=== PATIENT | female | born 1960 | race Caucasian/White ===

== ENCOUNTER 2019-06-07 11:05 | Inpatient (IN) ==
[2019-06-07 11:16] LABS: BE -2.1 mmoll (-3.0-3.0); BLOOD TYPE ARTERIAL; METHB 1.4 % (0.0-1.5); O2(CT) 19.7 mL/dL (15.0-23.0); PO2(98.6) 69 mmHg (60-100); SAMPLE BLOOD; SAO2 95.5 % (95.0-100.0); THB 15.8 g/dL (11.5-17.4); pH(98.6) 7.24 (7.35-7.45)
[2019-06-07] MEDS ORDERED: NS 1,000 ML IV ONE ×2 (11:24→11:56)
[2019-06-07 11:37] LABS: BASO# 0.02 X1000 (0.0-0.2); BASO% 0.2 % (0.0-0.8); EOS# 0.01 X1000 (0.0-0.7); EOS% 0.1 % (0.0-10.0); HEMATOCRIT 46.6 % (37.0-47.0); HEMOGLOBIN 14.9 g/dL (12.0-16.0); IMM GRAN# 0.03 X1000 (0.0-0.04); IMM GRAN% 0.3 % (0.0-0.5); LYMPH# 0.76 X1000 (1.2-3.4); LYMPH% 7.1 % (20.5-51.1); MCH 31.6 PG (27-31); MCV 98.7 FL (81-99); MONO# 1.31 X1000 (0.11-0.59); MONO% 12.2 % (1.7-9.3); MPV 9.8 FL (7.4-10.4); NEUT# 8.61 X1000 (1.4-6.5); NEUT% 80.1 % (42.2-75.2); PLT 286 X1000 (130-400); RBC 4.72 XMIL (4.2-5.4); WBC 10.74 X1000 (4.8-10.8)
[2019-06-07 11:40] LABS: PCO2(98.6) 63 mmHg (35-45)
[2019-06-07 11:41] LABS: ALLEN TEST YES; MODALITY NRB; O2HB 88.5 % (95.0-99.0)
--- NOTE | 2019-06-07 11:44 | Diag Imaging Result Doc PS360 ---
EXAM: CHEST-PORTABLE HISTORY: SOB TECHNIQUE: Single view COMPARISON: 10/27/2018 FINDINGS: The lungs are well expanded. The heart is not enlarged. The vessels are not distended. There are bilateral infiltrates, right greater than left. No effusion identified. IMPRESSION: Bilateral pneumonia Electronically signed by Lemuel Ibarra 06/07/2019 11:41 AM
[2019-06-07 11:54] LABS: INR 1.06; PROTIME 14.4 Seconds (11.0-16.0)
[2019-06-07 11:55] LABS: PTT 30.9 Seconds (22.3-41.8)
[2019-06-07 11:58] LABS: AGAP 17; ALBUMIN 4.1 g/dL (3.5-5.0); ALKALINE PHOSPHATASE 81 U/L (32-104); BUN 12 mg/dL (8-22); CALCIUM 9.4 mg/dL (8.8-10.2); CHLORIDE 96 mmol/L (98-107); COSMO 283; CREATININE 0.8 mg/dL (0.5-0.9); ESTIMATED GFR > 60; GLUCOSE 159 mg/dL (70-104); GOT 23 U/L (10-30); GPT 13 U/L (10-36); SODIUM 140 mmol/L (136-145); TCO2 27 mmol/L (25-35); TOTAL PROTEIN 7.6 g/dL (6.3-8.3)
[2019-06-07 12:15] LABS: CK PROFILE 748 U/L (24-173)
[2019-06-07] MEDS ORDERED: ZOSYN 3.375 GM in NS 50 ML IV ONE (12:19)
--- NOTE | 2019-06-07 12:27 | Diag Imaging Result Doc PS360 ---
EXAM: CT HEAD W/O CONTRAST HISTORY: altered mental tatus TECHNIQUE: CT head without contrast COMPARISON: 10/27/2018 FINDINGS: No parenchymal hemorrhage. No epidural or subdural hematoma. No subarachnoid hemorrhage. No mass identified on this noncontrasted exam. No hydrocephalus. No sinus opacification. IMPRESSION: No hemorrhage. Negative brain CT without contrast. This exam was performed using automated exposure control, adjustment of mA or kV according to patient size, and/or use of iterative reconstruction technique. Electronically signed by Lemuel Ibarra 06/07/2019 12:25 PM
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
[2019-06-07 12:38] LABS: CK INDEX 1.3 (0.0-2.5); CK-MB 9.47 ng/mL (0.0-5.0)
[2019-06-07] MEDS ORDERED: LEVOPHED 8 MG in D5 1/2 NS 250 ML IV SCH (13:15)
[2019-06-07] MEDS ORDERED: ZOFRAN IV PRN (13:24)
[2019-06-07] MEDS ORDERED: DUONEB (A & A) INH PRN (13:24)
[2019-06-07] MEDS ORDERED: DOXYCYCLINE 100 MG in NS 250 ML IV SCH (13:30)
[2019-06-07] MEDS: NS 1,000 ML IV SCH ×2 (13:30→20:38)
[2019-06-07] MEDS: ROCEPHIN 1 GM in NS 50 ML IV SCH ×2 (13:50→15:32)
[2019-06-07] MEDS ORDERED: NS 1,000 ML ONE (14:01)
[2019-06-07] MEDS: DUONEB (A & A) INH SCH ×3 (16:05→23:36)
--- NOTE | 2019-06-07 18:25 | EKG Report ---
Test Performed on : 06/07/2019 11:32:07 AM Test Reason : sob Blood Pressure : / mmHG Vent. Rate : 126 BPM Atrial Rate : 126 BPM P-R Int : 114 ms QRS Dur : 066 ms QT Int : 304 ms P-R-T Axes : 065 056 050 degrees QTc Int : 440 ms Sinus tachycardia. Nonspecific ST and T wave abnormality Abnormal ECG When compared with ECG of 27-MAY-2018 16:46, No significant change was found Unconfirmed Result
--- NOTE | 2019-06-07 19:22 | HISTORY AND PHYSICAL ---
CHIEF COMPLAINT: Shortness of breath. HISTORY OF PRESENT ILLNESS: The patient is a 59-year-old female who presented to [facility] ER secondary to increased work of breathing and shortness of breath. Apparently, EMS was called and upon arrival the patient was unresponsive. After suctioning her mouth and sitting her up, she was more alert. She apparently takes Klonopin and had taken 2 prior to going to bed. In the ER currently she is on BiPAP. She is arousable. Appears oriented. ALLERGIES: Erythromycin causing some seizures, Cipro hives, Flexeril, hives, Haldol hives, Vistaril hives, sulfa hives, and Neurontin. MEDICATIONS: She is on no current prescription medications although does apparently take Klonopin. PAST MEDICAL HISTORY: COPD, reflux, chronic anxiety, seizures, history of TIAs, and chronic pain. PAST SURGICAL HISTORY: She has had a cholecystectomy. REVIEW OF SYSTEMS: Effectively unobtainable currently from [facility]. SOCIAL HISTORY: She does smoke apparently a pack a day. Takes Klonopin. Unsure if she takes any other illicit substances currently. FAMILY HISTORY: Positive for hypertension. PHYSICAL EXAMINATION: VITAL SIGNS: Reviewed. GENERAL: Currently she is in moderate respiratory distress. She is on BiPAP. She is somnolent. She does arouse and attempts to answer questions. VITAL SIGNS: Blood pressures were low at 90 systolic despite almost a 2 L fluid bolus. HEENT: Normocephalic. NECK: Supple. CARDIOVASCULAR: Tachycardia 120s. CHEST: Marked decreased breath sounds bilaterally. Positive rhonchi throughout. Poor air movement throughout. Currently on BiPAP. ABDOMEN: Soft and nondistended. EXTREMITIES: She is noted to move all extremities. NEUROLOGIC: She has no focal changes. LABORATORIES: CBC and CMP effectively normal with a glucose at 159. ASSESSMENT: 1. Acute hypoxic respiratory failure. 2. Pneumonia. 3. Sepsis with hypotensive shock. Currently on Levophed. 4. Chronic obstructive pulmonary disease with exacerbation. Currently on BiPAP. 5. Acute hypoxic respiratory failure. 6. Apparent drug overdose. PLAN: We are going to admit the patient to the hospital ICU. Continue on BiPAP, antibiotics, and oxygen. Continue Levophed and IV fluids. We will follow. cc: Jorgito Wright MD
[2019-06-07 23:36] LABS: URINE SOURCE CATH
[2019-06-07 23:43] LABS: URINE WBC <10 /HPF (<10)
[2019-06-07 23:44] LABS: COLOR YELLOW; GLUCOSE URINE >1000 mg/dL (NEGATIVE); TURBIDITY URINE CLEAR (CLEAR); UR EPITHELIAL CELLS <10 /HPF (<10); URINE BACTERIA NEGATIVE /HPF; URINE RBC <10 /HPF (<10)
[2019-06-07 23:45] LABS: BILIRUBIN URINE NEGATIVE (NEGATIVE); BLOOD URINE NEGATIVE (NEGATIVE); KETONE URINE NEGATIVE (NEGATIVE); LEUKOCYTES URINE NEGATIVE (NEGATIVE); NITRITE URINE NEGATIVE (NEGATIVE); PROTEIN URINE 50 mg/dL (NEGATIVE); SP GRAVITY URINE 1.043; UROBILINOGEN URINE NORMAL (NORMAL)
[2019-06-08 00:04] LABS: UR AMPHETAMINES QUAL NONE DETECTED (NONE DETECT); UR BARBITUATES QUAL NONE DETECTED (NONE DETECT); UR BENZODIAZEPIN QUAL PRESUMPTIVE POSITIVE (NONE DETECT); UR CANNABINOIDS QUAL PRESUMPTIVE POSITIVE (NONE DETECT); UR COCAINE QUAL NONE DETECTED (NONE DETECT); UR METHADONE QUAL NONE DETECTED (NONE DETECT); UR OPIATES QUAL NONE DETECTED (NONE DETECT); UR OXYCODONE QUAL NONE DETECTED (NONE DETECT); UR PCP QUAL NONE DETECTED (NONE DETECT)
[2019-06-08] MEDS ORDERED: ZOFRAN IV PRN (01:59)
[2019-06-08] MEDS ORDERED: LEVOPHED 8 MG in D5 1/2 NS 250 ML IV SCH (02:00)
[2019-06-08] MEDS: DOXYCYCLINE 100 MG in NS 250 ML IV SCH ×2 (02:13→13:55)
[2019-06-08] MEDS: DUONEB (A & A) INH SCH ×6 (03:35→23:15)
[2019-06-08] MEDS: NS 1,000 ML IV SCH ×3 (06:12→17:40)
[2019-06-08 06:19] LABS: HEMATOCRIT 34.8 % (37.0-47.0); HEMOGLOBIN 11.2 g/dL (12.0-16.0); MCH 30.9 PG (27-31); MCHC 32.2 g/dL (33-37); MCV 96.1 FL (81-99); MPV 10.1 FL (7.4-10.4); RBC 3.62 XMIL (4.2-5.4); WBC 9.89 X1000 (4.8-10.8)
[2019-06-08 06:40] LABS: AGAP 10; ALBUMIN 3.1 g/dL (3.5-5.0); ALKALINE PHOSPHATASE 57 U/L (32-104); BUN 8 mg/dL (8-22); CALCIUM 8.2 mg/dL (8.8-10.2); CHLORIDE 106 mmol/L (98-107); COSMO 279; CREATININE 0.5 mg/dL (0.5-0.9); ESTIMATED GFR > 60; GLUCOSE 85 mg/dL (70-104); GOT 36 U/L (10-30); GPT 16 U/L (10-36); POTASSIUM 3.6 mmol/L (3.5-5.1); SODIUM 141 mmol/L (136-145); TCO2 25 mmol/L (25-35); TOTAL BILIRUBIN 0.66 mg/dL (0.20-1.00); TOTAL PROTEIN 6.1 g/dL (6.3-8.3)
[2019-06-08] MEDS: ATIVAN IV PRN ×4 (09:00→21:26)
--- NOTE | 2019-06-08 09:00 | PROGRESS NOTE ---
DATE: 06/08/2019 SUBJECTIVE: The patient is a little bit more awake today. Sometimes she mumbles some unintelligible words, but she is able to tell me where she and her name as well. She has been using BiPAP last night, and she has been restless as well, but definitely much more oriented in comparing with yesterday. OBJECTIVE: Vital Signs: Temperature 99.4 degrees, heart rate 115, respiratory rate 16, blood pressure 118/88, O2 saturation 98% on BiPAP at FiO2 40%. General: This is a disheveled, 59-year- old, female, lying in bed in no acute distress. Cardiovascular: S1, S2 heard. No murmurs, gallops. Regular rate and rhythm. Tachycardic. Respiratory: Decreased breath sounds globally, with rhonchi mostly noted in both pulmonary bases. The patient is not using any accessory muscles or having work of breathing. Abdomen: Soft, nontender to palpation. Bowel sounds present. No organomegaly. Extremities: No clubbing, cyanosis, or edema. Peripheral pulses present in both legs. Neurological: The patient is oriented to place and person. The patient moves all 4 extremities spontaneously. The patient is on 4-point restraints. LABORATORY DATA: ABG is pending at the time of my dictation. CBC shows hemoglobin 11.2, hematocrit 32.8. UDS was positive for benzodiazepines and cannabinoids. ASSESSMENT AND PLAN: 1. Acute hypoxic respiratory failure secondary to aspiration pneumonia. White cell count is fine. She is not spiking any fever. Currently, this patient is on doxycycline and ceftriaxone. I think we will continue with the same management for now. 2. Septic shock. The patient has been started on intravenous fluids, and since then, blood pressure is maintaining around 100 all the time. The patient was started on Levophed, but actually that medication has not been started yet, so will continue with the same management. 3. Chronic obstructive pulmonary disease exacerbation. Patient currently on bilevel positive airway pressure. ABG is still pending. Will continue to monitor in the intensive care unit closely. 4. Apparent drug overdose. The patient apparently has taken many Klonopin. We are not sure about the doses because on the weekend, we cannot confirm with her pharmacy. In any case, clinically this patient is waking up, so will continue with intravenous fluids, and considering that this patient is still a little bit confused, will keep her 1 more day in the intensive care unit. 5. Toxic encephalopathy. As we mentioned before, the patient is recovering, so I think at this point, will start a clear liquid diet and will go from there. 6. Disposition. Will monitor this patient closely in the intensive care unit. cc: Fred Augustine MD
[2019-06-08 09:53] LABS: ALLEN TEST YES; BE -2.8 mmoll (-3.0-3.0); BLOOD TYPE ARTERIAL; HCO3-(ACT) 22.7 mmoll (20.0-26.0); METHB 1.5 % (0.0-1.5); O2(CT) 16.9 mL/dL (15.0-23.0); PCO2(98.6) 47 mmHg (35-45); PO2(98.6) 100 mmHg (60-100); SAMPLE BLOOD; SAO2 98.7 % (95.0-100.0); THB 12.4 g/dL (11.5-17.4); pH(98.6) 7.31 (7.35-7.45)
[2019-06-08 09:54] LABS: MODALITY BI PAP
[2019-06-08] MEDS: ROCEPHIN 1 GM in NS 50 ML IV SCH (14:27)
[2019-06-08] MEDS ORDERED: ATIVAN IV ONE (19:38)
[2019-06-08] MEDS ORDERED: GEODON IM ONE (19:39)
[2019-06-08] MEDS ORDERED: STERILE WATER INJ. INJ ONE (19:39)
[2019-06-09] MEDS: STERILE WATER INJ. INJ PRN ×2 (00:35→17:20)
[2019-06-09] MEDS: GEODON IM PRN ×2 (00:35→17:20)
[2019-06-09] MEDS: DOXYCYCLINE 100 MG in NS 250 ML IV SCH ×2 (01:32→15:07)
[2019-06-09] MEDS: NS 1,000 ML IV SCH ×5 (01:32→23:08)
[2019-06-09] MEDS: DUONEB (A & A) INH SCH ×2 (03:45→10:43)
[2019-06-09 04:59] LABS: ALLEN TEST YES; BE -1.8 mmoll (-3.0-3.0); BLOOD TYPE ARTERIAL; HCO3-(ACT) 23.5 mmoll (20.0-26.0); METHB 1.1 % (0.0-1.5); O2(CT) 14.9 mL/dL (15.0-23.0); O2HB 95.1 % (95.0-99.0); PCO2(98.6) 46 mmHg (35-45); PO2(98.6) 75 mmHg (60-100); SAMPLE BLOOD; SAO2 97.9 % (95.0-100.0); THB 11.1 g/dL (11.5-17.4); pH(98.6) 7.33 (7.35-7.45)
[2019-06-09 05:00] LABS: MODALITY CANNULA
[2019-06-09 05:33] LABS: BASO# 0.04 X1000 (0.0-0.2); BASO% 0.4 % (0.0-0.8); EOS# 0.06 X1000 (0.0-0.7); EOS% 0.5 % (0.0-10.0); HEMATOCRIT 33.6 % (37.0-47.0); HEMOGLOBIN 11.2 g/dL (12.0-16.0); IMM GRAN# 0.03 X1000 (0.0-0.04); IMM GRAN% 0.3 % (0.0-0.5); LYMPH# 1.27 X1000 (1.2-3.4); LYMPH% 11.5 % (20.5-51.1); MCH 31.3 PG (27-31); MCHC 33.3 g/dL (33-37); MCV 93.9 FL (81-99); MONO# 0.99 X1000 (0.11-0.59); MPV 10.5 FL (7.4-10.4); NEUT# 8.61 X1000 (1.4-6.5); NEUT% 78.3 % (42.2-75.2); PLT 218 X1000 (130-400); RBC 3.58 XMIL (4.2-5.4); RDW 13.9 % (11.5-14.5)
[2019-06-09 05:50] LABS: AGAP 12; ALBUMIN 2.8 g/dL (3.5-5.0); BUN 5 mg/dL (8-22); CALCIUM 8.6 mg/dL (8.8-10.2); CHLORIDE 107 mmol/L (98-107); COSMO 277; CREATININE 0.4 mg/dL (0.5-0.9); ESTIMATED GFR > 60; GLUCOSE 68 mg/dL (70-104); PHOSPHORUS 1.6 mg/dL (2.7-4.5); POTASSIUM 3.3 mmol/L (3.5-5.1); SODIUM 141 mmol/L (136-145); TCO2 22 mmol/L (25-35)
[2019-06-09] MEDS: ATIVAN IV PRN (06:20)
[2019-06-09] MEDS ORDERED: SODIUM PHOSPHATE 35 MMOL in NS 250 ML IV ONE (08:53)
[2019-06-09] MEDS ORDERED: VENTOLIN HFA INH PRN (09:12)
[2019-06-09] MEDS: NEUTRA-PHOS PO SCH ×4 (09:16→22:04)
--- NOTE | 2019-06-09 09:47 | PROGRESS NOTE ---
DATE: 06/09/2019 SUBJECTIVE: The patient is definitely more awake today. She has been restless overnight. She has been placed on restraints, but upon my examination, as we mentioned before, she is more awake, oriented in place and person. OBJECTIVE: Vital Signs: Temperature 98.5 degrees, heart rate 104, respiratory rate 14, blood pressure 111/77, and O2 saturation 98% on room air. General: On examination, this is a disheveled 51-year-old female lying in bed, in no acute distress. Cardiovascular: S1 and S2 heard. No murmurs, gallops, or rubs. Regular rate and rhythm. Respiratory: Decreased breath sounds globally with minimal rhonchi noted in both pulmonary bases. The patient is not using any accessory muscles or having work of breathing. Abdomen: Soft, nontender to palpation. Bowel sounds present. No organomegaly. Extremities: No clubbing, cyanosis, or edema. Peripheral pulses present in both legs. Neurological: Patient is oriented in place and person. Patient moves 4 extremities. Patient is on 4-point restraints at this point. LABORATORY DATA: White cell count 11, hemoglobin 11.2, hematocrit 33.6, platelets 218,000. ABG shows pH 7.33 with pCO2 of 46, PO2 of 75. BMP reveals potassium 3.3, normal creatinine, phosphorus 1.6. ASSESSMENT AND PLAN: 1. Acute hypoxemic respiratory failure secondary to aspiration pneumonia. White cell count is normal. Patient is not requiring any oxygen supplementation. She is not spiking any fever. We will continue with doxycycline and ceftriaxone that have been started at admission, and we will continue checking labs on a daily basis. 2. Septic shock. The patient at admission was ordered Levophed, but that medication was never started. Her blood pressure is now maintaining okay, so we will continue with intravenous fluids. 3. Chronic obstructive pulmonary disease exacerbation. She did not require any BiPAP at night, so at this point we will continue with just breathing treatments as needed. 4. Apparent drug overdose. Patient is more awake today. 5. Toxic encephalopathy, resolved. 6. Disposition. The patient is going to regular floor today. cc: Fred Augustine MD
[2019-06-09] MEDS: ROCEPHIN 1 GM in NS 50 ML IV SCH (13:55)
[2019-06-09] MEDS: ATIVAN PO SCH (22:04)
[2019-06-10] MEDS: DOXYCYCLINE 100 MG in NS 250 ML IV SCH ×2 (03:12→12:59)
[2019-06-10] MEDS: GEODON IM PRN (03:25)
[2019-06-10] MEDS: STERILE WATER INJ. INJ PRN (03:26)
[2019-06-10 07:40] LABS: BASO# 0.04 X1000 (0.0-0.2); BASO% 0.4 % (0.0-0.8); EOS# 0.11 X1000 (0.0-0.7); EOS% 1.1 % (0.0-10.0); HEMOGLOBIN 10.8 g/dL (12.0-16.0); IMM GRAN# 0.02 X1000 (0.0-0.04); IMM GRAN% 0.2 % (0.0-0.5); LYMPH# 1.77 X1000 (1.2-3.4); LYMPH% 18.5 % (20.5-51.1); MCH 30.9 PG (27-31); MCHC 33.8 g/dL (33-37); MCV 91.7 FL (81-99); MONO# 0.78 X1000 (0.11-0.59); MONO% 8.1 % (1.7-9.3); NEUT# 6.86 X1000 (1.4-6.5); NEUT% 71.7 % (42.2-75.2); PLT 222 X1000 (130-400); RBC 3.49 XMIL (4.2-5.4); RDW 13.7 % (11.5-14.5); WBC 9.58 X1000 (4.8-10.8)
[2019-06-10] MEDS: ATIVAN PO SCH ×2 (08:44→21:37)
[2019-06-10 08:55] LABS: AGAP 12; ALBUMIN 2.9 g/dL (3.5-5.0); BUN 4 mg/dL (8-22); CALCIUM 7.8 mg/dL (8.8-10.2); CHLORIDE 106 mmol/L (98-107); COSMO 281; CREATININE 0.5 mg/dL (0.5-0.9); ESTIMATED GFR > 60; GLUCOSE 88 mg/dL (70-104); PHOSPHORUS 2.8 mg/dL (2.7-4.5); SODIUM 143 mmol/L (136-145); TCO2 25 mmol/L (25-35)
[2019-06-10 08:58] LABS: POTASSIUM 2.5 mmol/L (3.5-5.1)
[2019-06-10] MEDS: KLOR-CON PO SCH ×2 (10:18→21:36)
[2019-06-10] MEDS: NS 1,000 ML IV SCH ×4 (10:19→23:51)
[2019-06-10] MEDS: NICODERM PATCH TD SCH (11:48)
--- NOTE | 2019-06-10 14:35 | PROGRESS NOTE ---
DATE: 06/10/2019 SUBJECTIVE: Patient reports feeling fine. She looks more awake to me. There are still some periods of confusion. She has been in restraints but we are planning to remove them today. OBJECTIVE: Vital Signs: Temperature 98.4 degrees, heart rate 89, respiratory rate 18, blood pressure 116/73, O2 saturation 95% on room air. General Examination: This is a disheveled, 59- year-old, female lying in bed, in no acute distress. Cardiovascular Examination: S1 and S2 heard. No murmurs, gallops, or rubs. Regular rate and rhythm. Respiratory Examination: Decreased breath sounds globally with minimal rhonchi still noted in both pulmonary bases. Patient is not using any accessory muscles or having work of breathing. Abdomen: Soft, nontender to palpation. Bowel sounds present. No organomegaly. Extremities: No clubbing, cyanosis, or edema. Peripheral pulses present in both legs. Neurological Examination: The patient is oriented in place and person. Moves 4 extremities. The patient is still in four-point restraints. Laboratory Data: Reviewed. ASSESSMENT AND PLAN: 1. Acute hypoxemic respiratory failure secondary to aspiration pneumonia. White cell count is okay. Not requiring any oxygen supplementation. We will continue with doxycycline and ceftriaxone. 2. Septic shock, resolved with intravenous fluids. We will continue to monitor. 3. Chronic obstructive pulmonary disease exacerbation. Aware. Not requiring any BiPAP at night. 4. Toxic encephalopathy, resolved. 5. Apparent drug overdose. The patient is much more stable. We will continue to monitor. 6. Disposition. We will continue to monitor this patient closely. cc: Fred Augustine MD
[2019-06-10] MEDS: ROCEPHIN 1 GM in NS 50 ML IV SCH (15:43)
[2019-06-11] MEDS: DOXYCYCLINE 100 MG in NS 250 ML IV SCH (02:56)
[2019-06-11] MEDS: NS 1,000 ML IV SCH (02:56)
[2019-06-11] MEDS ORDERED: TYLENOL PO PRN (05:23)
[2019-06-11 06:49] LABS: BASO# 0.05 X1000 (0.0-0.2); BASO% 0.7 % (0.0-0.8); EOS% 1.4 % (0.0-10.0); HEMATOCRIT 30.7 % (37.0-47.0); HEMOGLOBIN 10.5 g/dL (12.0-16.0); IMM GRAN# 0.03 X1000 (0.0-0.04); IMM GRAN% 0.4 % (0.0-0.5); LYMPH# 1.98 X1000 (1.2-3.4); LYMPH% 28.3 % (20.5-51.1); MCH 31.2 PG (27-31); MCHC 34.2 g/dL (33-37); MCV 91.1 FL (81-99); MONO# 1.05 X1000 (0.11-0.59); MPV 9.5 FL (7.4-10.4); NEUT# 3.78 X1000 (1.4-6.5); NEUT% 54.2 % (42.2-75.2); PLT 226 X1000 (130-400); RBC 3.37 XMIL (4.2-5.4); RDW 13.7 % (11.5-14.5); WBC 6.99 X1000 (4.8-10.8)
[2019-06-11 07:17] LABS: AGAP 11; ALBUMIN 2.4 g/dL (3.5-5.0); BUN 2 mg/dL (8-22); CHLORIDE 109 mmol/L (98-107); COSMO 282; CREATININE 0.4 mg/dL (0.5-0.9); ESTIMATED GFR > 60; GLUCOSE 105 mg/dL (70-104); PHOSPHORUS 2.6 mg/dL (2.7-4.5); POTASSIUM 3.5 mmol/L (3.5-5.1); SODIUM 143 mmol/L (136-145); TCO2 23 mmol/L (25-35)
[2019-06-11 07:38] VITALS: BP 127/82
[2019-06-11] MEDS ORDERED: IMODIUM LIQUID PO ONE (10:02)
[2019-06-11] MEDS: ATIVAN PO SCH (10:46)
[2019-06-11] MEDS: KLOR-CON PO SCH (10:46)
[2019-06-11] MEDS: NICODERM PATCH TD SCH (10:46)
--- NOTE | 2019-06-11 10:54 | DISCHARGE SUMMARY ---
ADMISSION DATE: 06/07/2019 DISCHARGE DATE: 06/11/2019 ADMISSION DIAGNOSES: 1. Acute hypoxic respiratory failure. 2. Pneumonia. 3. Sepsis was hypotensive shock, was on Levophed. 4. Chronic obstructive pulmonary disease exacerbation on bilevel positive airway pressure. 5. Apparent drug overdose. DISCHARGE DIAGNOSES: 1. Acute hypoxemic respiratory failure secondary to aspiration pneumonia. 2. Septic shock, resolved. 3. Chronic obstructive pulmonary disease exacerbation, only requiring bilevel positive airway pressure at night. 4. Toxic encephalopathy, resolved. 5. Apparent drug overdose. CONSULTATIONS: Physical Therapy. SURGERIES OR PROCEDURES: None. HOSPITAL COURSE: On 06/07/2019, Ms. Bhavya Vincent a 59-year-old female presented to the ER with increased work of breathing, shortness of breath. When EMS found her she was unresponsive. They suctioned out her mouth, sat her up, and she was more alert. Apparently, she takes Klonopin and had taken 2 prior to bed. She was placed on BiPAP in the ER, was arousable, was oriented. She was septic from the aspiration pneumonia, which caused hypotension, was on Levophed, had to be on the BiPAP due to her COPD and hypoxemic respiratory failure, which was most likely induced to overtaking her Klonopin. She was in the ICU due for that, she was placed on antibiotics. Sepsis resolved. Hypotension resolved. It took her a little time, but the encephalopathy also resolved. Her diet was then advanced. The Klonopin was held. She improved daily. No fevers. She was continued on doxycycline and ceftriaxone while she is here, and she is deemed appropriate for discharge. DISCHARGE VITAL SIGNS: Temperature 98.3 degrees, heart rate 100, respiratory rate 18, blood pressure 127/82, O2 saturation 100% on room air. DISCHARGE LABORATORY DATA: White blood cells 6000, hemoglobin 10, hematocrit 30, platelet count 226,000. Sodium 143, potassium 3.5, BUN 2, creatinine 0.4, glucose 105, calcium 8.0, phosphorus 2.6, albumin 2.4. MICROBIOLOGY: Blood cultures negative. PERTINENT IMAGING: A 06/07/2019 chest x-ray: Bilateral pneumonia. Head CT: No hemorrhage, negative acute findings. An EKG sinus tachycardia, rate 126, QTc was 440. DISCHARGE MEDICATIONS: 1. Ativan 2 mg p.o. twice daily. 2. Suboxone 8 mg/2 mg sublingual twice a day. 3. Cefdinir 300 mg p.o. twice daily for 7 days. 4. Nicotine patch 21 mg transdermal daily. 5. Albuterol inhaler 2 puffs inhaled every 6 hours p.r.n. DISCHARGE DIET: Regular. DISCHARGE ACTIVITY: As tolerated. DISCHARGE INSTRUCTIONS: If your condition changes, contact a physician and/or return to the emergency department. Changes may include, but are not limited to shortness of breath, increased fatigue, excessive bleeding, unexplained weight loss or gain, unmanageable pain, signs or symptoms of infection. Notify the physician for a fever of 101 or above, shortness of breath, chest pain, worsening of symptoms, or other concerns. DISCHARGE DISPOSITION: Home. Dictated by JHOANA Nichole for Fred Augustine MD Addendum: Patient seen and examined by myself. Agree with JHOANA note. It reflects my assessment and plan. Patient is being discharged in stable condition. Will be seen by PCP in a week. cc: JHOANA Nichole MD [facility]
== END 2019-06-11 11:35 | disposition home or self-care (01) | DRG 917 ==
LOC: P.ED 11:05 → ICU 13:57 → SUATTDRO 13:57 → 4N 06-09 11:38
PROVIDERS: ATTEND Internal Medicine